=== PATIENT | female | born 1985 | race Caucasian/White ===

== ENCOUNTER 2017-12-03 12:06 | Day surgery (SDC) | END 2017-12-03 17:41 | disposition home or self-care (01) ==

== ENCOUNTER 2018-11-04 11:42 | Emergency (ER) | payer OTHER ==
[~2018-11-04] VITALS: Ht 162.6 cm; Wt 74.3 kg
[2018-11-04 11:46] VITALS: BP 125/74; PULSE 74; RESP 18; Ht 162.6 cm; Wt 74.3 kg
--- NOTE | 2018-11-04 12:21 | ERD ---
ER Documentation Chief Complaint Chief Complaint dysuria x 2 weeks HPI Patient is a 33-year-old female presents ER for concerns of dysuria times 2 weeks. Patient states initially she felt as if her symptoms worse resolving with drinking plenty of water however now her dysuria has restarted for the last 2-3 days. Patient reports urinary frequency. Patient denies any fevers or chills. Patient denies any nausea or vomiting. Patient denies any excessive vaginal bleeding or pelvic cramping. Patient denies any previous history of abdominal surgeries. Last menstrual period was 1218. ROS All systems reviewed and are negative except as per history of present illness. Medications Home Meds Active Scripts Nitrofurantoin Monohyd Macrocr* (Macrobid*) 100 Mg Capsr, 100 MG PO BID for 5 Days, CAP Prov:NICOLE PADGETT PA-C 11/04/18 Allergies Allergies: Coded Allergies: No Known Allergy (Unverified , 12/03/17) PMhx/Soc History of Surgery: Yes (excision of ovarian cyst) Anesthesia Reaction: No Hx Neurological Disorder: No Hx Respiratory Disorders: No Hx Cardiac Disorders: No Hx Psychiatric Problems: No Hx Miscellaneous Medical Probl: Yes (migraines) Hx Alcohol Use: No Hx Substance Use: No Hx Tobacco Use: No FmHx Family History: No diabetes Physical Exam Vitals Vital Signs Date Temp Pulse Resp B/P (MAP) Pulse Ox O2 O2 Flow FiO2 Time Delivery Rate 11/04/18 97.0 74 18 125/74 99 11:46 (91) Physical Exam GENERAL: Well-developed, well-nourished female. Appears in no acute distress. HEAD: Normocephalic, atraumatic. EYES: Pupils are equally reactive bilaterally. EOMs grossly intact. No conjunctival erythema. ENT: Moist mucous membranes. No uvula deviation. No kissing tonsils. NECK: Supple. No meningismus. Normal range of motion of the neck. LUNG: Clear to auscultation bilaterally. No rhonchi, wheezing, rales or coarse breath sounds. HEART: Regular rate and rhythm. No murmurs, rubs or gallops. ABDOMEN: Soft, nondistended. Slight tenderness to palpation in the suprapubic region.. Positive bowel sounds in all four quadrants. No rebound tenderness, no guarding. (-) McBurney's point tenderness. No CVA tenderness. EXTREMITIES: Equal pulses bilaterally. No peripheral clubbing, cyanosis or edema. No unilateral leg swelling. NEUROLOGIC: Alert and oriented. Moving all four extremities without any diffic ulty. Normal speech. Steady gait. SKIN: Normal color. Warm and dry. No rashes or lesions. Results 24 hrs Laboratory Tests Test 11/04/18 12:32 Bedside Urine pH (LAB) 6.0 Bedside Urine Protein (LAB) Trace Bedside Urine Glucose (UA) Negative Bedside Urine Ketones (LAB) Negative Bedside Urine Blood 2+ Bedside Urine Nitrite (LAB) Negative Bedside Urine Leukocyte Esterase (L 2+ Procedures/MDM MEDICAL DECISION MAKING: This is a 33-year-old female presents ER for concerns of dysuria for the last 2 weeks. Vital signs were reviewed. Patient was afebrile. UA showed 2+ leukocytes, 2+ blood. Urine was negative. Given these findings, the patient's presentation is most consistent with urinary tract infection. I have a much lower clinical concern for pyelonephritis, nephrolithiasis, appendicitis, diverticulitis, constipation, ectopic , PID, ovarian torsion, or tubo- ovarian abscess. Patient was nontoxic, non-ill appearing prior to discharge. PRESCRIPTIONS: Macrobid DISCHARGE: At this time, patient is stable for discharge and outpatient management. I have instructed the patient to follow-up with his/her primary care physician in 1-2 days. Patient should repeat UA in 2 weeks to check for resolution of urinary tract infection. If symptoms persist, patient may need to see a specialist for further examinations and testing. I have instructed the patient to promptly return to the ER at any time for any new or worsening symptoms including increased pain, fever, nausea, vomiting, urinary changes or weakness. The patient and/or family expressed understanding of and agreement with this plan. All questions were answered. Home care instructions were provided. Disclaimer: Inadvertent spelling and grammatical errors are likely due to EHR/dictation software use and do not reflect on the overall quality of patient care. Also, please note that the electronic time recorded on this note does not necessarily reflect the actual time of the patient encounter. Departure Diagnosis: Primary Impression: UTI (urinary tract infection) Urinary tract infection type: site unspecified Hematuria presence: with hematuria Qualified Codes: N39.0 - Urinary tract infection, site not specified; R31.9 - Hematuria, unspecified Condition: Fair Patient Instructions: Understanding Urinary Tract Infections (UTIs) Referrals: [facility] Additional Instructions: Call your primary care doctor TOMORROW for an appointment during the next 1-2 days.See the doctor sooner or return here if your condition worsens before your appointment time. NICOLE PADGETT PA-C Nov 04, 2018 12:21
[2018-11-04] MEDS ORDERED: NITR-58 PO (12:35)
== END 2018-11-04 13:00 | disposition home or self-care (01) ==
LOC: FTE 11:42
DX: N39.0 Urinary tract infection, site not specified (principal); R31.9 Hematuria, unspecified
CPT/HCPCS: 81003; Z7502; 99283